=== PATIENT | male | born 1945 | race Caucasian/White ===

== ENCOUNTER → 2024-01-11 07:50 | Outpatient (REF) | payer BC, SELFPAY | LOC: HWRAD 07:50 | PROVIDERS: ATTENDING PHYSICIAN Specialist; FAMILY PHYSICIAN Nurse Practitioner Acute Care | DX: K40.90 Unilateral inguinal hernia, without obstruction or gangrene, not specified as recurrent (principal) | CPT/HCPCS: 76870; 93976 ==

== ENCOUNTER 2024-02-18 06:26 | Day surgery (SDC) | payer BC, SELFPAY ==
[2024-02-09 10:19] VITALS: BMI 32.8
--- NOTE | 2024-02-10 16:20 | PTCARENOTE ---
Abn ECG, Dr. Palomo notified, 'ok to proceed as long as he has no symptoms of angina and decent exercise tolerance'. Spoke with patient. Patient denies SOB or Chest pain. Activity tolerance is good, states 'i worked for 4 hours in the garden
today without issue'.
[2024-02-18] VITALS (9 sets, daily range): BP systolic 125–161; BP diastolic 67–91; BMI 32.8
[2024-02-18 09:27] LABS: Glucose - Point of Care 138 mg/dl (70-99)
[2024-02-18] MEDS: NORMOSOL-R 1000 IV (09:40)
[2024-02-18] MEDS: TYLENOL 1000 MG PO (09:40)
--- NOTE | 2024-02-18 10:33 | W.SUR.PREOP ---
Pre-Operative Surgical Note
-
I have examined this patient prior to the performance of the scheduled procedure.
The patient's condition is unchanged from the time of the current History and
Physical and the patient is able to undergo the scheduled procedure.
--- NOTE | 2024-02-18 13:46 | W.IMMPOSTOP ---
Surgical Immed Post Op Note
-
Primary Surgeon: Valeriy Ferris MD
Assisting Surgeon: None
Pre-op Diagnosis: Incarcerated left inguinal hernia, umbilical hernia
Post-op Diagnosis: Same
Procedure Performed:
1. Open left inguinal hernia repair with mesh
2. Open umbilical hernia repair with mesh
Anesthesia Type: General
Specimen / Cultures:
1. Left inguinal cord lipoma
Estimated Blood Loss: 3 cc
Complications: None
Operative Findings: Massive left inguinal cord lipoma roughly 35 x 12 cm. The inguinal floor was reinforced with a 3 x 6 inch Bard flat mesh cut to size. The umbilical defect containing preperitoneal fat and was roughly 2 cm in diameter. This was
reinforced with a 6 cm round Bard soft mesh placed in the preperitoneal space and closed with a running 0 PDS suture.
--- NOTE | 2024-02-18 13:51 | OR.RPT ---
Operative Report
Operative Report
Patient Name: Shivam Dominguez
: 1945
Date of Operation: 02/18/2024
Preoperative Diagnosis: Incarcerated left inguinal hernia, umbilical hernia
Postoperative Diagnosis: Same
Procedure(s):
1. Open incarcerated left inguinal hernia repair with mesh
2. Open umbilical hernia repair with mesh
Surgeon(s):
Dr. Ferris
[employer] Pipes Assembler(s):
None
Anesthesia: General
Estimated Blood Loss: 3 cc
Urine Output: None
Drains/Lines/Implants:
1. 10 x 15 cm Bard flat mesh cut to size and secured in the floor of the left inguinal canal.
2. A 6 cm Bard soft mesh cut to size and secured in the preperitoneal space below the umbilicus.
Specimens:
1. Left cord lipoma
Indication for surgery: The patient has a history of groin pain and some asymmetry noted on exam and was found to have an incarcerated left inguinal Hernia, as well as a minimally symptomatic umbilical hernia. Following review of therapeutic
options they has elected to undergo an open repair of both hernias.
Operative Findings: Massive left inguinal cord lipoma roughly 35 x 12 cm. The inguinal floor was reinforced with a 3 x 6 inch Bard flat mesh cut to size. The umbilical defect containing preperitoneal fat and was roughly 2 cm in diameter. This was
reinforced with a 6 cm round Bard soft mesh placed in the preperitoneal space and closed with a running 0 PDS suture.
Details of the operation:
After induction of general anesthesia, the patient was clipped, prepped and draped in the supine position. A team timeout was performed confirming administration of DVT prophylaxis, IV antibiotics and SCDs. The ASIS and pubic tubercle were marked
and an incision was chosen along the course of a skin line. The skin was anesthestized with Lidocaine. An incision was made through the skin line and dissection carried down through subcutaneous tissue and Josias's fascia. The superficial
epigastric vein was identified and ligated. A Small Etienne wound retractor was used to provide exposure. The external oblique fibers were then divided in the direction of travel. The ilioinguinal nerve was identified and preserved. Dissection was
carried down to the floor, which revealed the following:
At the site of the indirect (internal) ring, there was no true indirect hernia sac but a very large incarcerated retroperitoneal cord lipoma was isolated and ligated with several ties at the neck. This lipoma measured roughly 35 x 12 cm. There was
also an additional smaller cord lipoma emanating from the lateral sidewall in the usual position that measured 12 by a 3 cm. This was also removed.
The direct space, floor of the canal revealed no weakness.
The testicle was briefly brought up into the field but returned to its normal position in the scrotum. The ilioinguinal and iliohypogastric nerves were identified but left alone as they had a healthy amount of perineural fat. The spermatic cord
and testicular vessels were also identified and preserved the 1 small testicular vein had to be sacrificed due to injury during our dissection.
The floor of the canal was then reconstructed by placing a 6x3 in BARD flat polypropylene mesh trimmed to size and secured it in place with interrupted 0-PDS sutures medially at the pubic tubercle, inferiorly along the inguinal ligament,
laterally/superiorly in the conjoint tendon. A slit was made in the mesh just wide enough to accommodate the cord this was also reapproximated with the PDS suture. Care was taken not to injure or entrap any nerves. The external oblique fibers were
then closed using a running 2-0 Vicryl suture. Josias's fascia was then closed with interrupted 3-0 Vicryl suture. The skin was closed in layers with interrupted 3-0 vicryl deep dermals followed by a running subcuticular 4-0 Monocryl followed by
dermabond.
We then turned our attention to the umbilical defect for which the skin was anesthetized with 0.25% Marcaine and an infraumbilical incision was made and dissection carried down to the fascia. The hernia sac was then encircled and carefully
dissected off of the umbilical stalk and returned to the abdomen. The defect measured 2 cm. The subcutaneous fat was then dissected off of the anterior rectus sheath to create a pocket large enough to accommodate the mesh to ensure the mesh laid
completely flat. A 6 centimeter round Bard soft mesh was placed in the preperitoneal space and the defect was then closed with a running 0 PDS suture taking small bites of the mesh between bites of fascia. The umbilical stalk was then tacked down
to the fascia with a 3-0 Vicryl suture. The dermis was then approximated with interrupted 3-0 Vicryl sutures followed by Dermabond. Once the glue had dried, we placed a folded up piece of gauze into the umbilicus and covered it with a large
Tegaderm dressing and then suctioned out the gauze to create a vacuum dressing to help obliterate the space. The patient returned to the Recovery Room in stable condition. Sponge and instrument counts were correct. No specimens sent to
Pathology.
I was the attending physician and performed the procedure with no assistance. I was present for all portions of the case
Valeriy Ferris MD
[2024-02-18 14:20] LABS: Glucose - Point of Care 158 mg/dl (70-99)
== END 2024-02-18 15:32 | disposition home or self-care (01) ==
LOC: SDS 06:26
PROVIDERS: ATTENDING PHYSICIAN Surgery; FAMILY PHYSICIAN Family Medicine
DX: K40.30 Unilateral inguinal hernia, with obstruction, without gangrene, not specified as recurrent (principal); K42.9 Umbilical hernia without obstruction or gangrene; D17.6 Benign lipomatous neoplasm of spermatic cord
CPT/HCPCS: 49507; 49595; 88304; 71046; 82962; 93005; C1781

== ENCOUNTER → 2024-04-15 07:01 | Outpatient (REF) | payer BC, SELFPAY | LOC: RAD 07:01 | PROVIDERS: ATTENDING PHYSICIAN Surgery; FAMILY PHYSICIAN Family Medicine | DX: N50.82 Scrotal pain (principal) | CPT/HCPCS: 72192 ==

== ENCOUNTER → 2024-10-14 09:46 | Outpatient (REF) | payer BC, SELFPAY | LOC: RAD 09:46 | PROVIDERS: ATTENDING PHYSICIAN Internal Medicine; FAMILY PHYSICIAN Family Medicine | DX: M75.101 Unspecified rotator cuff tear or rupture of right shoulder, not specified as traumatic (principal) | CPT/HCPCS: 73030 ==